=== PATIENT | female | born 1965 | race Caucasian/White ===

== ENCOUNTER 2022-05-20 13:23 | Observation (INO) | payer BC ==
[2022-05-20 14:02] LABS: Basophils # (A) 0.1 k/uL (0-0.2); Basophils % (A) 1 %; Eosinophils # (A) 0.2 k/uL (0-0.7); Eosinophils % (A) 3 %; HCT 42.6 % (34.0-46.0); HGB 14.7 gm/dL (11.4-16.0); Lymphocytes # (A) 2.2 k/uL (1.0-4.8); Lymphocytes % (A) 34 %; MCHC 34.4 g/dL (31.0-37.0); MCV 81.4 fL (80.0-100.0); Mean Platelet Volume 8.5; Monocytes # (A) 0.3 k/uL (0-1.0); Monocytes % (A) 5 %; Neutrophils # (A) 3.6 k/uL (1.3-7.7); Neutrophils % (A) 56 %; Platelet Count 263 k/uL (150-450); RBC 5.24 m/uL (3.80-5.40); RDW 13.5 % (11.5-15.5); WBC 6.4 k/uL (3.8-10.6)
[2022-05-20 14:11] LABS: ALT 32 U/L (4-34); AST 29 U/L (14-36); African American GFR (CKD) >90 (>60 ml/min/1.73 sqM); Albumin 4.7 g/dL (3.5-5.0); Alkaline Phosphatase 95 U/L (38-126); Anion Gap 13 mmol/L; Blood Urea Nitrogen 14 mg/dL (7-17); Calcium 9.4 mg/dL (8.4-10.2); Carbon Dioxide 19 mmol/L (22-30); Chloride 106 mmol/L (98-107); Glucose 111 mg/dL (74-99); Non-African American GFR(CKD) >90 (>60 ml/min/1.73 sqM); Sodium 138 mmol/L (137-145); Total Bilirubin 0.5 mg/dL (0.2-1.3); Total Protein 7.1 g/dL (6.3-8.2)
[2022-05-20 14:16] LABS: Partial Thromboplastin Time 26.8 sec (22.0-30.0); Prothrombin Time 10.5 sec (9.0-12.0)
--- NOTE | 2022-05-20 15:32 | XR ---
EXAMINATION TYPE: XR chest 2V DATE OF EXAM: 05/20/2022 COMPARISON: None HISTORY: 57-year-old female with pain TECHNIQUE: PA and lateral views FINDINGS: Heart normal size. Aorta and pulmonary vasculature within normal limits. Mild interstitial prominence . No consolidation or pleural effusion. IMPRESSION: No acute cardiopulmonary process.
[2022-05-20] MEDS ORDERED: NITROGLYCERIN OINT 1 INCH/GM PACKET TOPICAL STA (17:38)
[2022-05-20] MEDS ORDERED: ASPIRIN 81 MG PO STA (17:38)
--- NOTE | 2022-05-20 17:40 | ED ---
General Adult HPI - General Chief complaint: Chest Pain Stated complaint: Chest Pain Time Seen by Provider: 05/20/22 17:28 Source: patient, RN notes reviewed Mode of arrival: ambulatory Limitations: no limitations - History of Present Illness Initial comments: Patient is a pleasant 87-year-old female presents emergency department with concerns with chest discomfort. Onset of symptoms was a couple hours prior to arrival. Patient did have a syncopal episode around 10 days ago and her doctor told her to come to the hospital if she ever had chest discomfort. Discomfort is improving however not resolved, mild to moderate at this time. Discomfort fe els like tightness. No associated nausea, or diaphoresis. No history of chronic similar symptoms. No leg pain or leg swelling. - Related Data Allergies Allergy/AdvReac Type Severity Reaction Status Date / Time No Known Allergies Allergy Verified 05/20/22 13:38 Review of Systems ROS Statement: Those systems with pertinent positive or pertinent negative responses have been documented in the HPI. ROS Other: All systems not noted in ROS Statement are negative. Constitutional: Denies: fever Eyes: Denies: eye pain ENT: Denies: ear pain Respiratory: Reports: dyspnea. Denies: cough Cardiovascular: Reports: chest pain Endocrine: Denies: fatigue Gastrointestinal: Denies: abdominal pain Genitourinary: Denies: dysuria Musculoskeletal: Denies: back pain Skin: Denies: rash Neurological: Denies: weakness Past Medical History Past Medical History: No Reported History History of Any Multi-Drug Resistant Organisms: None Reported Past Surgical History: Cholecystectomy, Hysterectomy Past Psychological History: No Psychological Hx Reported Smoking Status: Never smoker Past Alcohol Use History: Occasional Past Drug Use History: Marijuana General Exam Limitations: no limitations General appearance: alert, in no apparent distress Head exam: Present: normocephalic Eye exam: Present: normal appearance Neck exam: Present: normal inspection Respiratory exam: Present: normal lung sounds bilaterally. Absent: chest wall tenderness Cardiovascular Exam: Present: regular rate, normal rhythm, normal heart sounds Expanded Peripheral pulses: 2+: Radial (R), Radial (L), Dorsalis Pedis (R), Dorsalis Pedis (L) GI/Abdominal exam: Present: soft. Absent: tenderness Extremities exam: Present: normal inspection. Absent: pedal edema, calf tenderness Neurological exam: Present: alert Psychiatric exam: Present: normal affect, normal mood Skin exam: Present: normal color Course Vital Signs 05/20/22 05/20/22 13:35 17:32 Temperature 97.9 F Pulse Rate 88 72 Respiratory 20 20 Rate Blood Pressure 136/91 145/93 O2 Sat by Pulse 96 98 Oximetry EKG Findings - EKG Comments: EKG Findings:: Sinus rhythm rate 86. ID 159. QRS 90. QT 354. QTC 397. Left axis. Low voltage. No acute ST change. Medical Decision Making - Medical Decision Making Patient made aware of plan. Case discussed with Dr. thomason who will admit covering for hospital observation call - Lab Data Result diagrams: 05/20/22 13:58 05/20/22 13:58 Lab Results 05/20/22 05/20/22 05/20/22 Range/Units 13:58 13:58 13:58 WBC 6.4 (3.8-10.6) k/uL RBC 5.24 (3.80-5.40) m/uL Hgb 14.7 (11.4-16.0) gm/dL Hct 42.6 (34.0-46.0) % MCV 81.4 (80.0-100.0) fL MCH 28.0 (25.0-35.0) pg MCHC 34.4 (31.0-37.0) g/dL RDW 13.5 (11.5-15.5) % Plt Count 263 (150-450) k/uL MPV 8.5 Neutrophils % 56 % Lymphocytes % 34 % Monocytes % 5 % Eosinophils % 3 % Basophils % 1 % Neutrophils # 3.6 (1.3-7.7) k/uL Lymphocytes # 2.2 (1.0-4.8) k/uL Monocytes # 0.3 (0-1.0) k/uL Eosinophils # 0.2 (0-0.7) k/uL Basophils # 0.1 (0-0.2) k/uL PT 10.5 (9.0-12.0) sec INR 1.0 (<1.2) APTT 26.8 (22.0-30.0) sec Sodium 138 (137-145) mmol/L Potassium 4.0 (3.5-5.1) mmol/L Chloride 106 (98-107) mmol/L Carbon Dioxide 19 L (22-30) mmol/L Anion Gap 13 mmol/L BUN 14 (7-17) mg/dL Creatinine 0.61 (0.52-1.04) mg/dL Est GFR (CKD-EPI)AfAm >90 (>60 ml/min/1.73 sqM) Est GFR (CKD-EPI)NonAf >90 (>60 ml/min/1.73 sqM) Glucose 111 H (74-99) mg/dL Calcium 9.4 (8.4-10.2) mg/dL Total Bilirubin 0.5 (0.2-1.3) mg/dL AST 29 (14-36) U/L ALT 32 (4-34) U/L Alkaline Phosphatase 95 (38-126) U/L Troponin I (0.000-0.034) ng/mL Total Protein 7.1 (6.3-8.2) g/dL Albumin 4.7 (3.5-5.0) g/dL 05/20/22 Range/Units 13:58 WBC (3.8-10.6) k/uL RBC (3.80-5.40) m/uL Hgb (11.4-16.0) gm/dL Hct (34.0-46.0) % MCV (80.0-100.0) fL MCH (25.0-35.0) pg MCHC (31.0-37.0) g/dL RDW (11.5-15.5) % Plt Count (150-450) k/uL MPV Neutrophils % % Lymphocytes % % Monocytes % % Eosinophils % % Basophils % % Neutrophils # (1.3-7.7) k/uL Lymphocytes # (1.0-4.8) k/uL Monocytes # (0-1.0) k/uL Eosinophils # (0-0.7) k/uL Basophils # (0-0.2) k/uL PT (9.0-12.0) sec INR (<1.2) APTT (22.0-30.0) sec Sodium (137-145) mmol/L Potassium (3.5-5.1) mmol/L Chloride (98-107) mmol/L Carbon Dioxide (22-30) mmol/L Anion Gap mmol/L BUN (7-17) mg/dL Creatinine (0.52-1.04) mg/dL Est GFR (CKD-EPI)AfAm (>60 ml/min/1.73 sqM) Est GFR (CKD-EPI)NonAf (>60 ml/min/1.73 sqM) Glucose (74-99) mg/dL Calcium (8.4-10.2) mg/dL Total Bilirubin (0.2-1.3) mg/dL AST (14-36) U/L ALT (4-34) U/L Alkaline Phosphatase (38-126) U/L Troponin I <0.012 (0.000-0.034) ng/mL Total Protein (6.3-8.2) g/dL Albumin (3.5-5.0) g/dL Disposition Clinical Impression: Chest pain Disposition: ADMITTED IP TO THIS HOSP Is patient prescribed a controlled substance at d/c from ED?: No Referrals: Darryl Eldridge MD [Primary Care Provider] - 1-2 days Time of Disposition: 17:47
[2022-05-20] MEDS ORDERED: NITROGLYCERIN SL TABS 0.4 MG TAB SUBLINGUAL PRN (17:47)
[2022-05-21] MEDS: NITROGLYCERIN OINT 1 INCH/GM PACKET TOPICAL SCH ×2 (00:57→06:08)
--- NOTE | 2022-05-21 02:16 | P.HPIM ---
History of Present Illness H&P Date: 05/20/22 Chief Complaint: chest pain 57 year old female with no significant past medical history patient coming in for evaluation of sudden onset left sided chest pain , which started after waking up, non radiating pain, associated with cold sweating and palpitations . denies any nausea , vomiting, or SOB. she denies any exertional dyspnea prior to this. however, she did experience a syncopal episode while on a trip in [place] about 2-3 weeks ago . which happened after she stood up suddenly from a seated position she has noticed that her wearable watch heart monitor showing increase heart rate variability recently she denies any cardiac history or recent illness or hospitalization denies any smoking, illicit drugs or alcohol workup inthe ED was unremarkable Review of Systems Pertinent positives as noted in HPI. All other systems were reviewed and are negative Past Medical History Past Medical History: No Reported History History of Any Multi-Drug Resistant Organisms: None Reported Past Surgical History: Cholecystectomy, Hysterectomy Past Psychological History: No Psychological Hx Reported Smoking Status: Never smoker Past Alcohol Use History: Occasional Past Drug Use History: Marijuana - Past Family History family Additional Family Medical History / Comment(s): no reported cardiac history Medications and Allergies Home Medications Medication Instructions Recorded Confirmed Type Aspirin [[place] Aspirin EC] 81 mg PO DAILY 05/20/22 05/20/22 History Allergies Allergy/AdvReac Type Severity Reaction Status Date / Time Sulfa (Sulfonamide Allergy Rash/Hives Verified 05/20/22 19:02 Antibiotics) Physical Exam Vitals: Vital Signs Temp Pulse Resp BP Pulse Ox 05/20/22 19:27 66 18 134/90 97 05/20/22 17:32 72 20 145/93 98 05/20/22 13:35 97.9 F 88 20 136/91 96 Intake and Output 05/20/22 05/20/22 05/20/22 06:59 14:59 22:59 Other: Weight 81.647 kg Constitutional: No acute distress, conversant, pleasant Eyes: Anicteric sclerae, moist conjunctiva, Pupils equal round reactive to light ENMT: NC/AT Oropharynx clear, no erythema, or exudates Neck: Supple, no masses, or JVD No carotid bruits No thyromegaly Lungs: Clear to auscultation Clear to percussion Normal respiratory effort, no accessory muscle use Cardiovascular: Heart regular in rate and rhythm, No murmurs, gallops, or rubs No peripheral edema Abdominal: Soft Nontender, no guarding, rebound or rigidity Abdomen moving with respiration Normoactive bowel sounds No hepatomegaly, No splenomegaly No palpable mass No abdominal wall hernia noted Skin: Normal temperature, tone, texture, turgor No induration No subcutaneous nodules No rash, lesions No ulcers Extremities: No digital cyanosis No clubbing Pedal pulses intact and symmetrical Radial pulses intact and symmetrical No calf tenderness Psychiatric: Alert and oriented to person, place and time Appropriate affect fair judgement Neuro Muscles Strength 5/5 in all 4 extremities Sensation to light touch grossly present throughout Cranial nerves II-XII grossly intact No focal sensory deficits Lymphatics: no palpable cervical or supraclavicular lymph nodes Results CBC & Chem 7: 05/20/22 13:58 05/20/22 13:58 Labs: Abnormal Lab Results - Last 24 Hours (Table) 05/20/22 Range/Units 13:58 Carbon Dioxide 19 L (22-30) mmol/L Glucose 111 H (74-99) mg/dL Assessment and Plan Assessment: atypical chest pain rule out ACS EKG no acute changes CXR no acute pathology trops negative X2 bus monitor monitor vital signs ASA, cardiology consult A1c, lipid panel , TSH pain control full code heparin sc tid for dvt ppx
[2022-05-21] MEDS: HEPARIN SODIUM,PORCINE/PF 5,000 UNIT/0.5 ML SYRINGE SQ SCH ×2 (06:09→17:18)
[2022-05-21] MEDS ORDERED: ASPIRIN 325 MG TAB PO SCH (09:00)
[2022-05-21] MEDS ORDERED: ASPIRIN 81 MG PO SCH (09:00)
[2022-05-21 09:23] LABS: Chol/HDL Ratio 5.13 Ratio; LDL Cholesterol,Calculated 188.1 mg/dL (0.0-131.0)
--- NOTE | 2022-05-21 09:59 | P.CRDCN ---
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 We have been consulted for chest pain. Patient presents to the emergency department with complaints of left-sided chest pain that began yesterday. He was nonradiating, nonexertional. No specific aggravating or alleviating factors. She describes it as a pressure. She did have some diaphoresis however's been having frequent hot flashes. She denies any nausea, vomiting, shortness of breath, lightheadedness, dizziness. She did have an episode of syncope about 10 days ago. She states that she was seen in the chair, had symptoms of palpitations, lightheadedness and dizziness. She does have a smartwatch and noted her heart rate to be elevated. She states that she stood up and brief loss of consciousness, lasted less than a minute and resolved. She had no chest pain with this episode. She followed up with her PCP after this and was referred to cardiology. Due to her episode of chest pain yesterday her PCP recommended to her to be evaluated in the ER. She denies any history of CAD, OH, stroke, diabetes, seizures, heart failure, arrhythmia, asthma, COPD. She denies any family history of cardiac disease. She denies any tobacco use, illicit drug use. Occasional alcohol use. DIAGNOSTICS * EKG reveals sinus rhythm, heart rate 86, nonspecific STT wave abnormalities in the anterior leads. * Telemetry tracings indicate sinus rhythm, heart rate 50s70s * Chest xray no acute cardiopulmonary process * Laboratory reviewed, troponin negative 3, CBC unremarkable, d-dimer negative, sodium 138, potassium 4.0, BUN 14, serum creatinine 0.6, hemoglobin A1c 5.6 * Current home medications include aspirin 81 mg daily REVIEW OF SYSTEMS At the time of my exam: CONSTITUTIONAL: Denies fever or chills. CARDIOVASCULAR: Denies chest pain, shortness of breath, orthopnea, PND or palpitations. RESPIRATORY: Denies cough. GASTROINTESTINAL: Denies abdominal pain, diarrhea, constipation, nausea or vomiting. MUSCULOSKELETAL: Denies myalgias. NEUROLOGIC: Denies numbness, tingling, headache or weakness. ENDOCRINE: Denies fatigue, weight change, polydipsia or polyurina. GENITOURINARY: Denies burning, hematuria or urgency with micturation. HEMATOLOGIC: Denies history of anemia or bleeding. PHYSICAL EXAMINATION Blood pressure 109/69, heart 55, afebrile, saturations 98% on room air CONSTITUTIONAL: No apparent distress. HEENT: Head is normocephalic. Pupils are equal, round. Sclerae anicteric. Mucous membranes of the mouth are moist. No JVD. No carotid bruit. CHEST EXAMINATION: Lungs are clear to auscultation. No chest wall tenderness is noted on palpation or with deep breathing. HEART EXAMINATION: Regular rate and rhythm. S1, S2 heard. No murmurs, gallops or rub. ABDOMEN: Soft, nontender. Positive bowel sounds. EXTREMITIES: 2+ peripheral pulses, no lower extremity edema and no calf tenderness. SKIN: Warm, dry NEUROLOGIC EXAMINATION: Patient is awake, alert and oriented x3. ASSESSMENT Chest pain, acute coronary syndrome has ruled out History of episode of syncope 10 days prior PLAN An acute coronary event has been ruled out with no EKG evidence of ischemia and negative cardiac enzymes. Obtain 2D echocardiogram and doppler study to assess cardiac structure and function. Perform stress echocardiogram test to assess for stress induced cardiac ischemia. If abnormal will consider coronary angiography. Lipid panel Stress test negative for stress-induced ischemia, no further inpatient workup from a cardiology perspective. Recommend follow up outpatient with cardiology Event monitor can be completed as an outpatient. Thank you kindly for this consultation. Nurse practitioner note has been reviewed by physician. Signing provider agrees with the documented findings, assessment, and plan of care. Past Medical History Past Medical History: No Reported History History of Any Multi-Drug Resistant Organisms: None Reported Past Surgical History: Cholecystectomy, Hysterectomy Past Psychological History: No Psychological Hx Reported Smoking Status: Never smoker Past Alcohol Use History: Occasional Past Drug Use History: Marijuana - Past Family History family Additional Family Medical History / Comment(s): no reported cardiac history Medications and Allergies Home Medications Medication Instructions Recorded Confirmed Type Aspirin [[place] Aspirin EC] 81 mg PO DAILY 05/20/22 05/20/22 History Allergies Allergy/AdvReac Type Severity Reaction Status Date / Time Sulfa (Sulfonamide Allergy Rash/Hives Verified 05/20/22 19:02 Antibiotics) Physical Exam Vitals: Vital Signs Temp Pulse Resp BP Pulse Ox 05/21/22 05:58 97.6 F 56 L 16 109/71 99 05/21/22 04:00 58 L 05/21/22 03:25 76 16 106/74 96 05/21/22 00:00 71 18 97 05/20/22 19:27 66 18 134/90 97 05/20/22 17:32 72 20 145/93 98 05/20/22 13:35 97.9 F 88 20 136/91 96 Results 05/20/22 13:58 05/20/22 13:58 Cardiac Enzymes 05/20/22 05/20/22 05/20/22 Range/Units 13:58 13:58 19:34 AST 29 (14-36) U/L Troponin I <0.012 <0.012 (0.000-0.034) ng/mL 05/20/22 Range/Units 21:04 AST (14-36) U/L Troponin I <0.012 (0.000-0.034) ng/mL Coagulation 05/20/22 Range/Units 13:58 PT 10.5 (9.0-12.0) sec APTT 26.8 (22.0-30.0) sec CBC 05/20/22 Range/Units 13:58 WBC 6.4 (3.8-10.6) k/uL RBC 5.24 (3.80-5.40) m/uL Hgb 14.7 (11.4-16.0) gm/dL Hct 42.6 (34.0-46.0) % Plt Count 263 (150-450) k/uL Comprehensive Metabolic Panel 05/20/22 Range/Units 13:58 Sodium 138 (137-145) mmol/L Potassium 4.0 (3.5-5.1) mmol/L Chloride 106 (98-107) mmol/L Carbon Dioxide 19 L (22-30) mmol/L BUN 14 (7-17) mg/dL Creatinine 0.61 (0.52-1.04) mg/dL Glucose 111 H (74-99) mg/dL Calcium 9.4 (8.4-10.2) mg/dL AST 29 (14-36) U/L ALT 32 (4-34) U/L Alkaline Phosphatase 95 (38-126) U/L Total Protein 7.1 (6.3-8.2) g/dL Albumin 4.7 (3.5-5.0) g/dL Current Medications Generic Name Dose Route Start Last Admin Trade Name Freq PRN Reason Stop Dose Admin Aspirin 325 mg 05/21/22 09:00 05/21/22 06:09 Aspirin 325 Mg Tab PO 325 mg DAILY [facility] Administration Heparin Sodium (Porcine) 5,000 unit 05/21/22 08:00 05/21/22 06:09 Heparin Sodium,Porcine/Pf 5,000 Unit/0.5 Ml Syringe SQ 5,000 unit Q8HR [facility] Administration Nitroglycerin 0.4 mg 05/20/22 17:47 Nitroglycerin Sl Tabs 0.4 Mg Tab SUBLINGUAL Q5M PRN Chest Pain Nitroglycerin 1 inch 05/21/22 00:00 05/21/22 06:08 Nitroglycerin Oint 1 Inch/Gm Packet TOPICAL Not Given Q6HR [facility] 05/20/22 13:58 05/20/22 13:58
[2022-05-21 14:19] VITALS: BP 116/69; PULSE 76; RESP 16; TEMP 98.4
--- NOTE | 2022-05-21 15:46 | P.PN ---
Subjective Progress Note Date: 05/21/22 Hospital course: Patient is a very pleasant 57-year-old female with no reported past medical history. She presented to the emergency department with a chief complaint of chest pain. Patient reports she believes she pulled a muscle at work as his pain was too midsternal chest and radiated up into her left shoulder and reports this aggravated her throughout her shift and when she got off work and came to the emergency department this pain had resolved. She underwent full evaluation in the emergency department. CBC, coags, and CMP were unremarkable. Troponin was negative at less than 0.012 and d-dimer also negative at 0.31. EKG completed showing normal sinus rhythm at 86 bpm with no noted T-wave or ST abnormalities showing no signs of acute ischemia. Chest x-ray negative for acute cardiopulmonary process. Patient was admitted under our services with consultation to cardiology. Troponins were trended all negative at less than 0.0123 draws. Lipid profile revealing elevated total cholesterol 254 and elevated LDL of 188.1. Patient started on atorvastatin 40 mg nightly. Cardiology took patient for stress echo and echocardiogram was completed and currently pending results. Physical exam: Patient seen and fully evaluated at bedside. Patient reports she remains free from any chest pain or discomfort or any other complaints at this time including headache, lightheadedness, dizziness, palpitations, shortness of breath, exertional dyspnea, nausea, vomiting, abdominal pain, or experiencing any numbness/tingling/weakness/swelling in her extremities. Vital signs reviewed and stable. General: Nontoxic, no distress and appears stated age. Derm: Skin warm and dry, normal coloration for ethnicity. Head: Atraumatic, normocephalic and symmetric. Eyes: EOMs intact, no lid lag, and anicteric sclera Mouth: no lip lesions, mucus membranes moist Cardiovascular: regular rate and rhythm with normal S1S2, no murmur, positive posterior tibial pulses bilaterally, and cap refill < 2 seconds. Lungs: Respirations even, regular, and unlabored on room air. Lungs CTA bilaterally, no rhonchi, no rales, no wheezing, and no accessory muscle usage. Abdominal: soft, nontender to palpation, no guarding, no appreciable organomegaly Ext: ROM intact. No gross muscle atrophy, no edema, no contractures Neuro: Speech clear, face symmetrical and CN II-XII grossly intact with no noted focal neuro deficits Psych: Alert and oriented to person, place, time, and situation. Appropriate and pleasant affect. Assessment and Plan of Care: Chest pain, acute coronary event was ruled out Hyperlipidemia -Cardiology following to the patient for stress echo, awaiting results. -Telemetry monitoring -Trend troponins -Cardiac diet, -Continue aspirin and atorvastatin. -Lipid profile revealed elevated total cholesterol of 254 and elevated LDL of 188.1, patient was started on atorvastatin. -Echocardiogram completed and currently pending results. CODE STATUS: Full code DVT prophylaxis: Heparin Discussed with: Patient and RN Anticipated discharge date: Later today versus tomorrow, awaiting stress echo results Anticipated discharge place: Home A total of 31 minutes was spent on the care of this complex patient more than 50% of the time was spent in counseling and care coordination. Objective - Vital Signs Vital signs: Vital Signs Temp 98.4 F 05/21/22 14:18 Pulse 76 05/21/22 14:18 Resp 16 05/21/22 14:18 BP 116/69 05/21/22 14:18 Pulse Ox 97 05/21/22 14:18 FiO2 Intake & Output 05/20/22 05/21/22 05/21/22 18:59 06:59 18:59 Weight 81.647 kg 81.647 kg Other: Voiding Method Toilet # Voids 1 - Labs CBC & Chem 7: 05/20/22 13:58 05/20/22 13:58 Labs: Abnormal Lab Results - Last 24 Hours (Table) 05/21/22 Range/Units 05:47 Cholesterol 254.00 H (0.00-200.00) mg/dL LDL Cholesterol, Calc 188.1 H (0.0-131.0) mg/dL
--- NOTE | 2022-05-21 16:50 | CA ---
Stress Echo Report Pushpa Chavez Age: 57 Gender: F : 1965 Exam Date: 05/21/2022 11:30 Exam Location: [facility] Ht (in): 66 Wt (lb): 180 Ordering Physician: Kristin Corona Referring Physician: PASCALE,, Acquisition Manager: Miguel Ángel Hutchinson Technologist Procedure CPT: Indication: chest pain, Hx syncope ICD-9 Codes: Rhythm: Patient History: Cardiac Medications: Medications in past 24 hours: Contrast: Stress Results Protocol: Kevon Total dose(mL): Exercise Duration (min:sec): Max ST Depression (mm): Angina Score: [place]ano Score: METS: 9.7 Resting HR: 72 Resting BP: 108 / 65 Peak HR: 152 Peak BP: 163 / 67 Max Predicted HR: 165 92 % Max Predicted HR Target HR: 140 Double Product: [id number] Stress Summary: BP Response: Reason for Termination: Reached target heart rate or work-load Cardiac Symptoms: NO SYMPTOMS ECG Analysis Resting ECG: Normal sinus rhythm normal axis normal intervals Stress ECG: Patient exercised on Kveon protocol for a total of 8 minutes achieving 9 METs 85% of predicted maximal heart rate without chest pain or diagnostic ST segment depression Arrhythmia: Non- Echo Analysis Resting Echo: Normal left ventricular size wall motion systolic function Peak Echo Analysis: Normal hyperdynamic response of all segments of myocardium MEASUREMENTS (Male/Female) Normal Values CONCLUSIONS Good exercise tolerance Negative stress test by EKG criteria Negative stress echo Dr. Surya Tenorio MD (Electronically Signed) Final Date: 21 May 2022 16:49
--- NOTE | 2022-05-21 16:59 | CA ---
Transthoracic Echo Report Name: Pushpa Chavez Age: 57 Gender: F : 1965 Exam Date: 05/21/2022 09:20 Exam Location: [facility] Ht (in): 66 Wt (lb): 180 Ordering Physician: Raghu Goff DO Attending/Referring Phys: Renal Dialysis Technician Olga Schmidt RDCS Procedure CPT: Indications: cp, recent syncope Cardiac Hx: Technical Quality: Fair Contrast 1: Total Dose (mL): Contrast 2: Total Dose (mL): MEASUREMENTS (Male / Female) Normal Values 2D ECHO LV Diastolic Diameter PLAX 4.8 cm 4.2 - 5.9 / 3.9 - 5.3 cm LV Systolic Diameter PLAX 3.0 cm IVS Diastolic Thickness 0.9 cm 0.6 - 1.0 / 0.6 - 0.9 cm LVPW Diastolic Thickness 1.1 cm 0.6 - 1.0 / 0.6 - 0.9 cm LV Relative Wall Thickness 0.4 RV Internal Dim ED PLAX 2.9 cm LA Volume 49.1 cm??? 18 - 58 / 22 - 52 cm??? M-MODE Aortic Root Diameter MM 2.6 cm LA Systolic Diameter MM 3.7 cm LA Ao Ratio MM 1.4 AV Cusp Separation MM 2.0 cm DOPPLER AV Peak Velocity 107.0 cm/s AV Peak Gradient 4.6 mmHg LVOT Peak Velocity 84.8 cm/s LVOT Peak Gradient 2.9 mmHg MV Area PHT 3.0 cm??? Mitral E Point Velocity 49.8 cm/s Mitral A Point Velocity 42.6 cm/s Mitral E to A Ratio 1.2 MV Deceleration Time 250.6 ms MV E' Velocity 7.2 cm/s Mitral E to MV E' Ratio 6.9 TR Peak Velocity 242.4 cm/s TR Peak Gradient 23.5 mmHg Right Ventricular Systolic Press 27.5 mmHg FINDINGS Left Ventricle Normal Left ventricular size, wall thickness, systolic function with no obvious regional wall motion abnormalities. Normal Left ventricular diastolic filling pattern. Left ventricular ejection fraction is estimated at 55-60 %. Right Ventricle Normal right ventricular size and function. Right ventricular systolic pressure within normal limits. Right Atrium Normal right atrial size. Left Atrium Normal left atrial size. No evidence for an atrial septal defect. Mitral Valve Structurally normal mitral valve. No mitral stenosis, regurgitation or prolapse. Aortic Valve No aortic valve stenosis or regurgitation. Tricuspid Valve Structurally normal tricuspid valve. Mild tricuspid regurgitation. Pulmonic Valve Structurally normal pulmonic valve. Trace pulmonic regurgitation. Pericardium No pericardial effusion. Aorta Normal size aortic root and proximal ascending aorta. CONCLUSIONS Normal LV systolic function Previewed by: Dr. Surya Tenorio MD (Electronically Signed) Final Date: 21 May 2022 16:58
--- NOTE | 2022-05-21 17:34 | P.DS ---
Providers Date of admission: 05/20/22 17:49 Expected date of discharge: 05/21/22 Attending physician: Libra Domingo MD Consults: 05/20/22 17:48 Consult Physician Urgent Consulting Provider: Flo Powers Consult Reason/Comments: cp Do you want consulting provider notified?: Yes Primary care physician: Darryl Eldridge Hospital Course: Discharge Diagnosis: Chest pain, acute coronary event was ruled out. It is important to follow up outpatient with cardiology in 1 week for placement of event monitor. Hyperlipidemia. Total cholesterol 254 with LDL of 188.1. Patient was started on atorvastatin 40 mg nightly. Hospital Course: Patient is a very pleasant 57-year-old female with no reported past medical history. She presented to the emergency department with a chief complaint of chest pain. Patient reports she believes she pulled a muscle at work as his pain was too midsternal chest and radiated up into her left shoulder and reports this aggravated her throughout her shift and when she got off work and came to the emergency department this pain had resolved. She underwent full evaluation in the emergency department. CBC, coags, and CMP were unremarkable. Troponin was negative at less than 0.012 and d-dimer also negative at 0.31. EKG completed showing normal sinus rhythm at 86 bpm with no noted T-wave or ST abnormalities showing no signs of acute ischemia. Chest x-ray negative for acute cardiopulmonary process. Patient was admitted under our services with consultation to cardiology. Troponins were trended all negative at less than 0.0123 draws. Lipid profile revealing elevated total cholesterol 254 and elevated LDL of 188.1. Patient started on atorvastatin 40 mg nightly. Cardiology took patient for stress echo and echocardiogram was completed. Echocardiogram revealing preserved EF of 55-60% with no reported valvular or structural abnormalities. Stress echo then completed revealing good exercise tolerance and negative stress test by EKG and stress echo criteria. Cardiology recommending no further inpatient workup, recommending patient follow-up outpatient in the office for event monitor placement. Patient is medically stable at this time in stable for discharge home. Patient to follow up outpatient with PCP and cardiology as discussed. Physical exam: Please refer to progress note written earlier today to review full detailed physical examination. Pt was discharged on 05/21/22 at 5:25 PM. I reviewed the documentation as provided by the HEBERT above, who is the original author of this note. I agree with the documented assessment and plan, with the following changes: none Patient Condition at Discharge: Stable Plan - Discharge Summary New Discharge Prescriptions: New Atorvastatin [Lipitor] 40 mg PO HS 30 Days #30 tab Continue Aspirin [Crisp Aspirin EC] 81 mg PO DAILY Discharge Medication List Aspirin [Crisp Aspirin EC] 81 mg PO DAILY 05/20/22 [History] Atorvastatin [Lipitor] 40 mg PO HS 30 Days #30 tab 05/21/22 [Rx] Follow up Appointment(s)/Referral(s): Darryl Eldridge MD [Primary Care Provider] - 1-2 days Surya Tenorio MD [STAFF PHYSICIAN] - 2 Weeks Patient Instructions/Handouts: Chest Pain (DC) Activity/Diet/Wound Care/Special Instructions: Activity: As tolerated. Take breaks as needed. Diet: Heart healthy and carb consistent diet. Avoid salts, or foods with hidden salts such as canned or boxed foods and frozen dinners. Extra salt makes your heart work harder and traps the fluid in your body for longer. Special Instructions: Take all of your medications as directed and remember to keep all of your doctor's appointments and follow-up as needed. You will need to follow up outpatient with cardiology in 1 week for placement of event monitor. Thank you for allowing us to participate in your care, it was truly a pleasure having you for our patient!!! Discharge Disposition: HOME SELF-CARE
[2022-05-21] MEDS ORDERED: ATORVASTATIN 40 MG TAB PO SCH (21:00)
== END 2022-05-21 17:36 | disposition home or self-care (01) ==
LOC: EC 13:23 → 6NMEDSUR 17:49
PROVIDERS: ADMIT Family Medicine; ATTEND Family Medicine
DX: R07.89 Other chest pain (principal); E78.5 Hyperlipidemia, unspecified; R61 Generalized hyperhidrosis; R00.2 Palpitations; R23.2 Flushing; Z79.82 Long term (current) use of aspirin; Z88.2 Allergy status to sulfonamides; Z90.49 Acquired absence of other specified parts of digestive tract; Z90.710 Acquired absence of both cervix and uterus
CPT/HCPCS: 96372; 99285; 36415; 93005 ×2; 93306; 93351; 85379; 80061; 80053; 84443; 84484; 85025; 85610; 85730; 83036; 71046; G0378 ×2; J1644